=== PATIENT | female | born 1965 | race African-American/Black ===

== ENCOUNTER 2021-02-24 07:33 | Outpatient (CLI) | payer BC, SELFPAY ==
--- NOTE | ~2021-02-24 | XR_ITS ---
EXAMINATION: XR abdomen/kub 1V INDICATION: Bilateral low back pain TECHNIQUE: Supine views of the abdomen were obtained on 2 radiographs. COMPARISON: CT, 07/01/2019 FINDINGS: No urolithiasis is identified. There are phleboliths of the right pelvis. A calcified uteri ne fibroid is noted. The bowel gas pattern is normal. There is mild osteoarthritis of the hips. Punct ate left upper quadrant calcifications likely represent healed granulomatous disease of the spleen. IMPRESSION: 1. . No radiographic correlate for the patient's symptoms. Reviewed, dictated and finalized at location A.
== END 2021-02-24 07:34 ==
LOC: MICIMG 07:34
PROVIDERS: Visit Provider Internal Medicine
DX: R10.9 Unspecified abdominal pain (principal)
CPT/HCPCS: 74018

== ENCOUNTER → 2021-05-12 11:18 | Outpatient (CLI) | payer OTHER, SELFPAY ==
--- NOTE | ~2021-05-12 | XR_ITS ---
EXAMINATION: XR chest 2V DATE: 05/12/2021 11:36 INDICATION: Wheezing TECHNIQUE: frontal and lateral views of the chest were obtained. COMPARISON: Chest radiograph dated 07/01/2019 FINDINGS: The lungs remain clear with no focal airspace opacities, pulmonary edema, pleural effusion or pneumot horax. Cardiomediastinal silhouette is normal with bilateral paracardial fat pads. Visualized bones a nd soft tissues are unremarkable. IMPRESSION: 1. No acute cardiopulmonary disease. Reviewed, dictated and finalized at location A.
== END ==
PROVIDERS: Visit Provider Internal Medicine
DX: R06.2 Wheezing (principal)
CPT/HCPCS: 71046

== ENCOUNTER 2021-08-26 10:41 | Emergency (ER) | payer OTHER, SELFPAY ==
[2021-08-26 10:57] VITALS: BP 127/79; PULSE 64; RESP 16; TEMP 36.3; O2SAT 99
--- NOTE | 2021-08-26 10:58 | ED.GENADULT ---
HPI - General Adult General Chief complaint: Unspecified Stated complaint: ride side body/marco knee pain Time Seen by Provider: 08/26/21 11:15 Source: patient and RN notes reviewed Mode of arrival: ambulatory Limitations: no limitations History of Present Illness HPI narrative: 55-year-old female presents with report of right-sided pain and bilateral knee pain. Patient is unable to specify specific pain on right side, or origin of pain. Reports yesterday she tripped while going down the stairs falling onto her knees then rolling to her right side. She denies any lacerations, abrasions, bruising, swelling. Reports taking ibuprofen with little relief. MD complaint: Knee pain Related Data Home Medications Medication Instructions Recorded Confirmed lisinopril 5 mg PO DAILY 08/26/21 08/26/21 rosuvastatin 5 mg PO DAILY 08/26/21 08/26/21 Allergies Allergy/AdvReac Type Severity Reaction Status Date / Time No Known Allergies Allergy Verified 08/26/21 11:06 Review of Systems Review of Systems: CONSTITUTIONAL: Denies malaise, chills, sweats, or fever. CARDIOVASCULAR: Denies chest pain, palpitations, or edema. RESPIRATORY: Denies cough or dyspnea. SKIN: Denies lacerations, abrasions, bruising MUSCULOSKELETAL: Reports generalized right-sided pain. Reports bilateral knee pain NEUROLOGIC: Denies numbness, weakness All systems reviewed & are unremarkable except as noted in HPI and below PMFSH Comments At time of signature, agree with nursing past medical, surgical, social and family history. There is no relevant family history pertinent to the presenting complaint Exam Narrative: GENERAL: Well-appearing, well-nourished, and in no acute distress. HEAD: Normocephalic, atraumatic. EYES: PERRLA, sclera clear, and EOMI. ENT: Mucous membranes moist. NECK: Supple. No lymphadenopathy. CHEST: No respiratory distress. Clear to auscultation. No bony deformities, no asymmetry. Speaks in full sentences. HEART: Regular rate and rhythm. EXTREMITIES: Grossly normal range of motion. No edema. Grossly normal strength and sensation. No specific points of tenderness noted, patient's complaint of pain are vague SKIN: Warm, dry, no visible rash. No lacerations, abrasions noted no points of erythema or warmth noted NEURO: Alert and oriented x3. PSYCH: Normal mood and affect Course Course Emergency Course: Patient is aware of diagnosis, understands and agrees to treatment plan. Anticipatory guidance given. Patient agrees to follow-up as directed and is aware of reasons to seek care at the emergency department. Portions of this record may have been created with voice recognition software Vital Signs Vital signs: Vital Signs Temperature 97.3 F L 08/26/21 10:57 Pulse Rate 64 08/26/21 10:57 Respiratory Rate 16 08/26/21 10:57 Blood Pressure 127/79 08/26/21 10:57 Pulse Oximetry 99 08/26/21 10:57 Temperature 97.3 F L 08/26/21 10:57 Pulse Rate 64 08/26/21 10:57 Respiratory Rate 16 08/26/21 10:57 Blood Pressure 127/79 08/26/21 10:57 Pulse Oximetry 99 08/26/21 10:57 Reviewed. Medical Decision Making MDM Narrative Medical decision making narrative: Patients pain is consistent with musculoskeletal etiology. No signs of neurological or vascular compromise on exam. Compartments and tissues are soft without signs of compartment syndrome. Pain is felt appropriate for further evaluation on an outpatient basis. Vital Signs Vital Signs: Vital Signs Temperature 97.3 F L 08/26/21 10:57 Pulse Rate 64 08/26/21 10:57 Respiratory Rate 16 08/26/21 10:57 Blood Pressure 127/79 08/26/21 10:57 Pulse Oximetry 99 08/26/21 10:57 Temperature 97.3 F L 08/26/21 10:57 Pulse Rate 64 08/26/21 10:57 Respiratory Rate 16 08/26/21 10:57 Blood Pressure 127/79 08/26/21 10:57 Pulse Oximetry 99 08/26/21 10:57 Critical Care Time Critical Care Time Critical Care Time: No Discharge Plan Disch
== END 2021-08-26 11:40 | disposition home or self-care (01) ==
PROVIDERS: Emergency Provider Nurse Practitioner; PCP Internal Medicine
DX: M25.561 Pain in right knee (principal); W10.9XXA Fall (on) (from) unspecified stairs and steps, initial encounter; E78.00 Pure hypercholesterolemia, unspecified; I10 Essential (primary) hypertension
CPT/HCPCS: 99213; G0463

== ENCOUNTER 2021-12-31 11:41 | Outpatient (CLI) | payer OTHER, SELFPAY ==
--- NOTE | ~2021-12-31 | XR_ITS ---
EXAMINATION: XR chest 2V DATE: 12/31/2021 11:58 INDICATION: Expiratory wheezing. TECHNIQUE: Frontal and lateral views of the chest were obtained. COMPARISON: Chest 2 views 05/12/2021, CT abdomen and pelvis 07/01/2019 FINDINGS: There is no pneumonia, pleural effusion, or pneumothorax. Cardiomegaly is noted. IMPRESSION: 1. Cardiomegaly. Reviewed, dictated and finalized at location A. H CASER IMPRESSION: 1. Cardiomegaly.
== END 2021-12-31 11:42 ==
PROVIDERS: Visit Provider Internal Medicine
DX: R06.2 Wheezing (principal); I51.7 Cardiomegaly
CPT/HCPCS: 71046

== ENCOUNTER 2022-06-21 08:14 | Outpatient (CLI) | payer OTHER, SELFPAY ==
--- NOTE | ~2022-06-21 | CT_ITS ---
EXAMINATION: CT BRAIN W/O DATE: 06/21/2022 09:37 INDICATION: There are minimal headaches for one month TECHNIQUE: Computed tomography (CT) of the head was performed without intravenous contrast. The dose- length product was 524.62 mGy-cm. Automated exposure control and iterative reconstruction technique w ere employed. COMPARISON: No prior studies for comparison. FINDINGS: Normal brain parenchymal volume for age. Normal blake-white differentiation. No acute intrac ranial hemorrhage, infarction, mass or mass effect. There are scattered mild periventricular and subc ortical white matter changes, most likely related to small vessel ischemic disease (microangiopathy). No ventriculomegaly or midline shift. Midline sagittal images demonstrate a normal corpus callosum, c raniovertebral junction and sella turcica. Basilar cisterns are patent. Paranasal sinuses and mastoids are pneumatized. No depressed skull fractures. IMPRESSION: 1. No acute intracranial abnormality. Reviewed, dictated and finalized at location A.
== END 2022-06-21 08:15 ==
PROVIDERS: PCP Internal Medicine; Visit Provider Internal Medicine
DX: R51.9 Headache, unspecified (principal)
CPT/HCPCS: 70450

== ENCOUNTER 2022-11-20 10:36 | Emergency (ER) | payer OTHER, SELFPAY ==
[2022-11-20 10:50] VITALS: BP 136/78; PULSE 63; RESP 18; TEMP 36.3; O2SAT 100
--- NOTE | 2022-11-20 11:15 | ED.EXTPRO ---
HPI - Extremity Problem General Chief complaint: Extremity Problem,Nontraumatic Stated complaint: pain right arm/leg Time Seen by Provider: 11/20/22 11:00 Source: patient Mode of arrival: ambulatory Limitations: no limitations History of Present Illness HPI Narrative: Ms. Hussein is a 57-year-old female patient presenting to clinic today with complaints of numbness and tingling into her right forearm is radiating up into her right upper arm as well as some numbness and tingling to the right lateral leg. She reports that this has been going on for 3-4 days now. She works as a architectural project manager. She denies any known injury. no history of carpal tunnel or paresthesia before. She denies any shortness of breath or chest pain Related Data Home Medications Medication Instructions Recorded Confirmed lisinopril 5 mg PO DAILY 08/26/21 11/20/22 rosuvastatin 5 mg PO DAILY 08/26/21 11/20/22 amlodipine 5 mg tablet 5 mg PO DIRECTED 11/20/22 11/20/22 Allergies Allergy/AdvReac Type Severity Reaction Status Date / Time No Known Allergies Allergy Verified 11/20/22 10:55 Review of Systems Review of Systems: Pertinent positives per HPI. Patient denies any fever, chills, rash, headache, visual changes, dizziness, cough, runny nose, sore throat, shortness of breath, chest pain, palpitations, nausea, vomiting, diarrhea, constipation, abdominal pain, or any urinary issues. PMFSH Comments At the time of my signature, I reviewed and agree with the nursing past medical, surgical, social, and family history. There is no relevant family history pertinent to the patient complaint. Exam Narrative: General: Well-developed, well nourished, in no apparent distress Head: Normocephalic, atraumatic. Cardio: Regular rate and rhythm, s1 and s2 normal, no murmur appreciated. Resp: Clear to auscultation bilaterally, no rhonchi, rales, wheezing or rubs. Musculoskeletal: No deformity, positive Tinel's sign to right elbow, tender to palpation over the lateral olecranon, grossly normal range of motion, hand grasp weaker in the right hand versus the left hand, tenderness to palpation over the lateral greater trochanter with pain radiating into the lateral right leg, bilateral lower muscle strength strong and equal, peripheral pulse strong, no edema, no cyanosis, normal gait and station Course Course Emergency Course: Portions of this record may have been created with voice recognition software. Level of Care: Express Care Visit Vital Signs Vital signs: Vital Signs Temperature 36.3 C L 11/20/22 10:50 Pulse Rate 63 11/20/22 10:50 Respiratory Rate 18 11/20/22 10:50 Blood Pressure 136/78 11/20/22 10:50 Pulse Oximetry 100 11/20/22 10:50 Oxygen Delivery Room Air 11/20/22 10:50 Temperature 36.3 C L 11/20/22 10:50 Pulse Rate 63 11/20/22 10:50 Respiratory Rate 18 11/20/22 10:50 Blood Pressure 136/78 11/20/22 10:50 Pulse Oximetry 100 11/20/22 10:50 Oxygen Delivery Room Air 11/20/22 10:50 Vital signs reviewed MDM - Extremity (Nontraumatic) MDM Narrative Medical decision making narrative: Atthe time of visit patient is resting comfortably on the exam table. I suspect the patient has right tennis elbow with possible bursitis /inflammation of the right greater trochanter. Prescription for prednisone was sent to the pharmacy. Supportive measures were discussed with the patient and she voiced understanding discharge instructions agrees to treatment plan. Blood sugar was 73 in the clinic today. Differential Diagnosis Differential diagnosis: Likely other ( Tennis elbow, bursitis, sciatica, lumbar radiculopathy, cervical radiculopathy) Lab Data Labs: Lab Results 11/20/22 Range/Units 11:16 POC Capillary Glucose 73 (65-105) mg/dl Discharge Plan Discharge Clinical Impression: Paresthesia and pain of right extremity Epicondylitis, lateral Qualifiers: Laterality: right Qualified Code(s):
[2022-11-20 11:19] LABS: Glucose Point of Care 73 mg/dl (65-105)
== END 2022-11-20 11:25 | disposition home or self-care (01) ==
PROVIDERS: Emergency Provider Nurse Practitioner Family; PCP Internal Medicine
DX: R20.2 Paresthesia of skin (principal); M77.11 Lateral epicondylitis, right elbow; I10 Essential (primary) hypertension
CPT/HCPCS: 82948; 99213; G0463

== ENCOUNTER 2024-06-13 17:08 | Emergency (ER) | payer OTHER, SELFPAY ==
--- NOTE | ~2024-06-13 | XR_ITS ---
Clinical Indication: Rib pain AP and lateral views of the chest: Comparison: 12/31/2021 Findings: The lungs are clear, without evidence of focal consolidation or pleural effusion. Cardiome diastinal silhouette is within normal limits. Bones and soft tissues are unremarkable. Impression: Normal chest. Reviewed, dictated and finalized at location . Impression: Normal chest.
--- NOTE | ~2024-06-13 | CT_ITS ---
CT of the Abdomen and Pelvis: Indication: Abdominal pain Technique: 2.5 mm axial scans were obtained through the abdomen and pelvis following intravenous adm inistration of 100 cc of Omnipaque 350. Dose reduction technique was used on this scan by utilizing a utomated exposure control and iterative reconstruction technique. The dose-length product (DLP) was 5 94.69 mGy-cm. COMPARISON: 12/28/2023 Findings: Scans through the lung bases are unremarkable. The liver, spleen, pancreas, gallbladder, adrenals and kidneys are within normal limits. No evidence of aortic aneurysm. No lymphadenopathy. No bowel obstruction or bowel wall thickening. There is no evidence to suggest acute appendicitis. Images through the pelvis were performed. Urinary bladder unremarkable. Small calcified fibroid prese nt. No ascites. Impression: No acute abnormality. Small calcified uterine fibroid. Reviewed, dictated and finalized at [facility]. Impression: No acute abnormality. Small calcified uterine fibroid.
[2024-06-13 17:19] VITALS: BP 146/75; PULSE 73; RESP 20; TEMP 36.3; O2SAT 98
[2024-06-13 19:43] LABS: Basophils Percent Auto 0.3 % (0.2-1.2); Eosinophils Absolute Auto 0.2 K/mm3 (0-0.3); Eosinophils Percent Auto 3.3 % (0-4.4); Hematocrit 36.1 % (37.0-47.0); Hemoglobin 11.6 g/dL (12.0-15.0); Immature Granulocyte Absolute 0.01 K/mm3 (0.00-0.031); Immature Granulocyte Percent A 0.2 % (0-0.5); Lymphocytes Absolute Auto 1.91 K/mm3 (0.9-3.2); Lymphocytes Percent Auto 28.7 % (18.3-44.2); Mean Corpuscular HGB Conc 32.1 g/dl (32-36); Mean Corpuscular Hemoglobin 30.4 pg (26-34); Mean Corpuscular Volume 94.5 fl (80-100); Mean Platelet Volume 9.4 fl (7.4-10.4); Monocytes Absolute Auto 0.3 K/mm3 (0.1-0.6); Monocytes Percent Auto 4.7 % (2.6-8.5); Neutrophils Absolute Auto 4.2 K/mm3 (1.3-6.7); Neutrophils Percent Auto 62.8 % (45.5-73.1); Platelet Count Result 258 k/mm3 (150-375); Red Blood Count 3.82 M/mm3 (4.2-5.4); Red Cell Distribution Width 12.8 % (11.5-14.5); White Blood Count 6.7 K/mm3 (4.5-10.0)
[2024-06-13 19:53] VITALS: BP 139/84; PULSE 55; RESP 16; O2SAT 100
[2024-06-13 19:53] LABS: Alanine Aminotransferase 17 U/L (6-35); Albumin Level 4.6 g/dL (3.5-5.1); Alkaline Phosphatase 85 U/L (38-126); Anion Gap 9 mmol/L (4-12); Aspartate Amino Transferase 23 U/L (14-36); Bilirubin,Total 0.5 mg/dL (0.2-1.3); Blood Urea Nitrogen 10 mg/dL (7-17); Calcium 9.9 mg/dL (8.4-10.2); Carbon Dioxide 28 mmol/L (22-30); Chloride 103 mmol/L (98-107); Estimated Glomerular Filt Rate > 60; Glucose 83 mg/dL (65-110); Lipase 50 U/L (23-300); Potassium 3.8 mmol/L (3.4-5.0); Sodium 140 mmol/L (137-145)
[2024-06-13 20:02] LABS: Appearance Urine Clear (Clear); Bacteria Urine None Seen /hpf; Bilirubin Urine Negative (Negative); Blood Urine Negative (Negative); Color Urine Yellow (Yellow); Glucose Urine UA Negative (Negative); Ketones Urine Negative (Negative); Leukocyte Esterase Ur 2+ LEU/UL (Negative); Nitrate Urine Negative (Negative); Non Pathogenic Casts 0-2; Protein Urine Negative (Negative); RBC Urine 0-2 /hpf (0-2); Specific Grav Ur 1.008 (1.001-1.035); Squamous Epithelial Cell Urine None Seen /hpf (Few); Urobilinogen Urine 0.2 mg/dL (<2.0); pH Urine 5.5 (5.0-9.0)
[2024-06-13 20:03] LABS: Add Urine Microscopic? YES
--- NOTE | 2024-06-13 21:22 | ECG_ITS ---
Test Date: 2024-06-13 21:39:31 Measurements Intervals [place] Rate: 101 P: 37 CO: 120 QRS: 7 QRSD: 90 T: 7 QT: 385 QTc: 500 Interpretive Statements SINUS TACHYCARDIA VOLTAGE CRITERIA FOR LVH NONSPECIFIC T-WAVE ABNORMALITY- ANT/INF LEADS BASELINE WANDER- I, II, III ABNORMAL ECG No previous ECG available for comparison Electronically Signed On 06-14-2024 08:21:24 CDT by Dick Hussein D.O.
--- NOTE | 2024-06-13 21:25 | ED.ABDPAIN ---
HPI - Abdominal Pain General Chief Complaint: Abdominal Pain Stated Complaint: L flank/abd pain, headaches Time Seen by Provider: 06/13/24 19:40 History of Present Illness HPI narrative: 58-year-old female with history of hypertension and hyperlipidemia presents to the emergency department for multiple medical complaints. She is reporting a frontal headache, left upper back pain and abdominal pain for 1 week. Patient states she has a history of headaches but this headache seems different than normal because it is consistent. States it is located in the frontal aspect of her head. She denies recent injury or trauma, vision changes, focal numbness or weakness, nuchal rigidity, fever. She states that she has pain in the left upper back near her scapula that hurts worse with deep inspiration and when bending forward. She denies injury or trauma to this region, chest pain shortness of breath, cough or congestion, lower extremity edema, calf pain, history of VTE, hemoptysis. She is reporting diffuse abdominal pain as well for 1 week. She does endorse a history of chronic intermittent abdominal pain but states this pain is been going on persistently for 1 week. She denies aggravating or alleviating factors. States she had an EGD and colonoscopy done approximately 6 years ago to evaluate for ulcers with this was unremarkable. She was on a medication prescribed by her GI doctor which seemed to help at that time but she is not currently taking it. She denies dysuria or hematuria, prior abdominal surgeries, N/V/D. Related Data Home Medications Medication Instructions Recorded Confirmed lisinopril 5 mg PO DAILY 08/26/21 11/20/22 rosuvastatin 5 mg PO DAILY 08/26/21 11/20/22 amlodipine 5 mg tablet 5 mg PO DIRECTED 11/20/22 11/20/22 Allergies Allergy/AdvReac Type Severity Reaction Status Date / Time No Known Allergies Allergy Verified 11/20/22 10:55 Review of Systems Review of Systems: All systems reviewed & are unremarkable except as noted in HPI and below Exam Narrative: GENERAL: Well-appearing, well-nourished, and in no acute distress. HEAD: Normocephalic, atraumatic. EYES: PERRLA and EOMI. ENT: Nares clear, no rhinorrhea or epistaxis. Mucous membranes moist. NECK: Supple. CHEST: Clear to auscultation. No respiratory distress. HEART: Regular rate and rhythm. No murmur heard. Normal peripheral pulses. ABDOMEN: Normoactive bowel sounds. Abdomen soft with tenderness in the left lower quadrant. No rebound, guarding or rigidity. No CVA tenderness. EXTREMITIES: Normal range of motion. No edema. Negative Homans bilaterally SKIN: Warm, dry, no rash. NEURO: No focal deficits. Alert and oriented x3. strength out of 5 BUE and BLE. Sensation intact throughout. 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 Course Vital Signs Vital signs: Vital Signs Temperature 97.4 F L 06/13/24 17:19 Pulse Rate 73 06/13/24 17:19 Respiratory Rate 20 06/13/24 17:19 Blood Pressure 146/75 H 06/13/24 17:19 Pulse Oximetry 98 06/13/24 17:19 Oxygen Delivery Room Air 06/13/24 17:19 Temperature 97.4 F L 06/13/24 17:19 Pulse Rate 55 L 06/13/24 19:53 Respiratory Rate 16 06/13/24 19:53 Blood Pressure 139/84 06/13/24 19:53 Pulse Oximetry 100 06/13/24 19:53 Oxygen Delivery Room Air 06/13/24 17:19 MDM - Abdominal Pain MDM Narrative Medical decision making narrative: 58-year-old female presents to the emergency department with multiple medical complaints. See HPI for further history. Vitals stable. Exam significant for the above. She is afebrile and nontoxic appearing. She is neurovascularly intact. Exam significant for the above. She has no red flag headache signs. I do not feel need to obtain a CT brain at this time. CBC without leukocytosis. Hemoglobin 11.6 with a normal MCV, no prior for comparison. Chemistries are unrem
[2024-06-13] MEDS: SODIUM CHLORIDE 0.9% IV 1,000 ML 999 ML IV CONT (21:35)
[2024-06-13] MEDS: diphenhydrAMINE HCl INJ 50 MG/ML VIAL 25 MG IV PUSH (21:36)
[2024-06-13] MEDS: PROCHLORPERAZINE EDISYLATE 10 MG/2 ML VIAL IV PUSH (21:38)
[2024-06-13] MEDS: ACETAMINOPHEN 500 MG TABLET 1000 MG PO (21:39)
[2024-06-13 21:44] LABS: Lactic Acid Reflex 0.5 mmol/L (0.7-2.0)
[2024-06-13 21:45] LABS: Prothrombin Time 13.9 Seconds (11.1-14.7)
[2024-06-13 21:46] LABS: Partial Thromboplastin Time 34.7 Seconds (22.3-36.8)
[2024-06-13 21:52] LABS: NT Pro B Type Natriuretic Pept 46 pg/mL (19.9-100); Troponin I < 0.012 ng/mL (0.000-0.034)
== END 2024-06-13 23:33 | disposition home or self-care (01) ==
PROVIDERS: Emergency Medicine; Emergency Provider Physician Assistant; PCP Internal Medicine
DX: G44.201 Tension-type headache, unspecified, intractable (principal); R10.32 Left lower quadrant pain; M54.6 Pain in thoracic spine; R82.998 Other abnormal findings in urine; Z79.899 Other long term (current) drug therapy; D25.9 Leiomyoma of uterus, unspecified; R00.0 Tachycardia, unspecified; R94.31 Abnormal electrocardiogram [ECG] [EKG]
CPT/HCPCS: 36415; 71046; 74177; 80053; 81001; 81025; 83605; 83690; 83880; 84484; 85025; 85380; 85610; 85730; 87086; 93005; 96361; 96374; 96375; 99284; A9270; J0780; J1200; J7030; Q9967

== ENCOUNTER 2025-01-21 15:29 | Outpatient (CLI) | payer OTHER, SELFPAY ==
--- NOTE | ~2025-01-21 | XR_ITS ---
EXAMINATION: XR knee LT 3V DATE: 01/21/2025 16:09 INDICATION: Left knee pain. TECHNIQUE: 3 views of left knee including standing views were obtained. COMPARISON: None. FINDINGS: There is varus angulation at the knee. No fracture. There is severe osteoarthritis of media l compartment and mild osteoarthritis of lateral and patellofemoral compartments. There is no knee moreno int effusion. IMPRESSION: 1. Severe left knee osteoarthritis. Reviewed, dictated and finalized at location A. HUNTER
--- NOTE | ~2025-01-21 | XR_ITS ---
EXAMINATION: XR knee RT 3V DATE: 01/21/2025 16:09 INDICATION: Right knee pain. TECHNIQUE: 3 views of right knee including standing views were obtained. COMPARISON: None. FINDINGS: There is varus angulation at the knee. No fracture. There is severe osteoarthritis of media l compartment, moderate osteoarthritis of patellofemoral compartment, and mild osteoarthritis of late ral compartment. No knee joint effusion. IMPRESSION: 1. Severe right knee osteoarthritis. Reviewed, dictated and finalized at location A. RAW HAND
== END 2025-01-21 15:30 | disposition home or self-care (01) ==
LOC: MICIMG 15:38
PROVIDERS: PCP Internal Medicine; Visit Provider Internal Medicine
DX: M17.0 Bilateral primary osteoarthritis of knee (principal)
CPT/HCPCS: 73562

== ENCOUNTER 2025-05-10 14:46 | Outpatient (CLI) | payer OTHER, SELFPAY ==
--- NOTE | ~2025-05-10 | CT_ITS ---
CT of the Abdomen and Pelvis: Indication: Microscopic hematuria Technique: 2.5 mm axial scans were obtained through the abdomen and pelvis prior to and following in travenous administration of 130 cc of Omnipaque 350. Dose reduction technique was used on this scan b y utilizing automated exposure control and iterative reconstruction technique. The dose-length produc t (DLP) was 1671.55 mGy-cm. COMPARISON: 06/13/2024 Findings: Scans through the lung bases are unremarkable. The liver, spleen, pancreas, gallbladder, adrenals and kidneys are within normal limits. No evidence of aortic aneurysm. No lymphadenopathy. No bowel obstruction or bowel wall thickening. There is no evidence to suggest acute appendicitis. Images through the pelvis were performed. Urinary bladder unremarkable. Probable uterine fibroids pre sent, including 1 densely calcified fibroid. No other adnexal mass. No ascites. Impression: No etiology for hematuria identified. Uterine fibroids. Reviewed, dictated and finalized at [facility]. Impression: No etiology for hematuria identified. Uterine fibroids.
[2025-05-10 15:10] LABS: Estimated Glomerular Filt Rate 57
== END 2025-05-10 14:47 | disposition home or self-care (01) ==
LOC: MICIMG 14:47
PROVIDERS: PCP Internal Medicine; Visit Provider Internal Medicine
DX: R31.29 Other microscopic hematuria (principal); D25.9 Leiomyoma of uterus, unspecified
CPT/HCPCS: 74178; Q9967